=== PATIENT | male | born 1960 | race Caucasian/White ===

== ENCOUNTER → 2021-12-10 | Outpatient (CLI) | payer MEDICARE, OTHER ==
[~2021-12-10] MED LIST: DIABETA 5 MG TAB5 MG PO; ELIQUIS 2.5 MG2.5 MG PO; ELIQUIS2.5 MG PO; FEOSOL325 MG PO; JANUVIA100 MG PO; LORTAB 10-3251 EACH PO; METFORMIN HCL1000 MG PO; MOBIC15 MG PO; NORCO 7.5-3251 EACH PO; NORVASC 5 MG TAB5 MG PO; PAXIL20 MG PO; PERCOCET 10-321 EACH PO; PERCOCET 5/325 T1 EA PO; TENORMIN 50 MG50 MG PO; ZESTRIL2.5 MG PO
== END ==
LOC: WCC 07:51
DX: S01.00XA Unspecified open wound of scalp, initial encounter (principal); I10 Essential (primary) hypertension; E11.622 Type 2 diabetes mellitus with other skin ulcer; Z96.653 Presence of artificial knee joint, bilateral; E66.01 Morbid (severe) obesity due to excess calories

== ENCOUNTER → 2021-12-23 | Outpatient (CLI) | payer MEDICARE, OTHER | END | disposition home or self-care (01) | LOC: WCC 07:44 | DX: S01.80XA Unspecified open wound of other part of head, initial encounter (principal); I10 Essential (primary) hypertension; E66.01 Morbid (severe) obesity due to excess calories; E11.622 Type 2 diabetes mellitus with other skin ulcer; Z68.31 Body mass index [BMI] 31.0-31.9, adult ==

== ENCOUNTER → 2021-12-30 | Outpatient (CLI) | payer MEDICARE, OTHER | LOC: WCC 08:06 | DX: S01.00XA Unspecified open wound of scalp, initial encounter (principal); E11.9 Type 2 diabetes mellitus without complications; I10 Essential (primary) hypertension; E11.622 Type 2 diabetes mellitus with other skin ulcer; E66.01 Morbid (severe) obesity due to excess calories; Z68.31 Body mass index [BMI] 31.0-31.9, adult ==

== ENCOUNTER → 2022-01-08 | Outpatient (CLI) | payer MEDICARE | LOC: WCC 08:04 | DX: S01.00XD Unspecified open wound of scalp, subsequent encounter (principal); I10 Essential (primary) hypertension; E11.622 Type 2 diabetes mellitus with other skin ulcer; E66.01 Morbid (severe) obesity due to excess calories; E11.40 Type 2 diabetes mellitus with diabetic neuropathy, unspecified; X58.XXXD Exposure to other specified factors, subsequent encounter ==

== ENCOUNTER → 2022-01-15 | Outpatient (CLI) | payer MEDICARE | LOC: WCC 08:38 | DX: E11.622 Type 2 diabetes mellitus with other skin ulcer (principal); L98.499 Non-pressure chronic ulcer of skin of other sites with unspecified severity; S01.00XA Unspecified open wound of scalp, initial encounter; I10 Essential (primary) hypertension; E66.01 Morbid (severe) obesity due to excess calories; Z68.31 Body mass index [BMI] 31.0-31.9, adult ==

== ENCOUNTER → 2022-01-22 | Outpatient (CLI) | payer MEDICARE, OTHER | LOC: WCC 07:52 | DX: S01.00XA Unspecified open wound of scalp, initial encounter (principal); I10 Essential (primary) hypertension; E11.622 Type 2 diabetes mellitus with other skin ulcer; E66.01 Morbid (severe) obesity due to excess calories; Z91.048 Other nonmedicinal substance allergy status; Z68.31 Body mass index [BMI] 31.0-31.9, adult; X58.XXXA Exposure to other specified factors, initial encounter ==

== ENCOUNTER → 2022-01-30 | Outpatient (CLI) | payer MEDICARE | LOC: WCC 08:12 | DX: S01.00XD Unspecified open wound of scalp, subsequent encounter (principal); X58.XXXD Exposure to other specified factors, subsequent encounter; E11.622 Type 2 diabetes mellitus with other skin ulcer; L98.499 Non-pressure chronic ulcer of skin of other sites with unspecified severity; E66.01 Morbid (severe) obesity due to excess calories; Z68.31 Body mass index [BMI] 31.0-31.9, adult; Z79.891 Long term (current) use of opiate analgesic | CPT/HCPCS: G0463 ==

== ENCOUNTER → 2022-02-05 | Outpatient (CLI) | payer MEDICARE, OTHER | LOC: WCC 07:33 | DX: S01.00XD Unspecified open wound of scalp, subsequent encounter (principal); I10 Essential (primary) hypertension; E11.40 Type 2 diabetes mellitus with diabetic neuropathy, unspecified; E66.01 Morbid (severe) obesity due to excess calories; Z68.31 Body mass index [BMI] 31.0-31.9, adult | CPT/HCPCS: G0463 ==

== ENCOUNTER → 2022-02-19 | Outpatient (CLI) | payer MEDICARE, OTHER | LOC: WCC 08:38 | DX: E11.622 Type 2 diabetes mellitus with other skin ulcer (principal); S01.00XA Unspecified open wound of scalp, initial encounter; I10 Essential (primary) hypertension; E66.01 Morbid (severe) obesity due to excess calories; Z91.048 Other nonmedicinal substance allergy status; Z68.31 Body mass index [BMI] 31.0-31.9, adult; X58.XXXA Exposure to other specified factors, initial encounter | CPT/HCPCS: 87070; 87205 ==

== ENCOUNTER → 2022-02-26 | Outpatient (CLI) | payer MEDICARE, OTHER | END | disposition home or self-care (01) | LOC: WCC 08:05 | DX: S01.00XA Unspecified open wound of scalp, initial encounter (principal); E11.622 Type 2 diabetes mellitus with other skin ulcer; I10 Essential (primary) hypertension; E66.01 Morbid (severe) obesity due to excess calories; Z68.31 Body mass index [BMI] 31.0-31.9, adult; X58.XXXA Exposure to other specified factors, initial encounter ==

== ENCOUNTER → 2022-03-06 | Outpatient (CLI) | payer MEDICARE, OTHER | LOC: WCC 08:59 | DX: S01.00XD Unspecified open wound of scalp, subsequent encounter (principal); E11.9 Type 2 diabetes mellitus without complications; I10 Essential (primary) hypertension; E66.01 Morbid (severe) obesity due to excess calories; Z68.31 Body mass index [BMI] 31.0-31.9, adult | CPT/HCPCS: G0463 ==

== ENCOUNTER → 2022-03-13 | Outpatient (CLI) | payer MEDICARE, OTHER | LOC: WCC 07:47 | DX: S01.00XD Unspecified open wound of scalp, subsequent encounter (principal); I10 Essential (primary) hypertension; E11.9 Type 2 diabetes mellitus without complications; E66.01 Morbid (severe) obesity due to excess calories | CPT/HCPCS: G0463 ==